=== PATIENT | female | born 1970 | race Caucasian/White ===

== ENCOUNTER 2022-10-20 13:16 | Inpatient (IN) | payer BC ==
[~2022-10-20] VITALS: Ht 165.1 cm; Wt 154.5 kg
[2022-10-20 13:25] VITALS: BP 181/95
[2022-10-20 14:04] LABS: BASO % 1.3 % (0.0-1.0); EOS # 0.1 10*3/uL (0.0-0.4); EOS % 2.3 % (1.0-4.0); HEMATOCRIT 41.2 % (37.0-47.0); LYMPH # 1.5 10*3/uL (1.3-4.4); LYMPH % 46.9 % (27.0-41.0); MEAN CELL VOLUME 98.1 fl (81.0-99.0); MEAN CORPUSCULAR HGB 33.1 pg (27.0-31.0); MEAN CORPUSCULAR HGB CONC 33.7 g/dl (33.0-37.0); MEAN PLATELET VOLUME 10.4 fl (9.6-12.3); MONO # 0.5 10*3/uL (0.1-1.0); MONO % 15.2 % (3.0-9.0); NEUT # 1.1 10*3/uL (2.3-7.9); PLATELET COUNT AUTOMATED 284 10*3/uL (130-400); RED CELL DISTRI WIDTH 14.5 % (0-14.5); WHITE BLOOD COUNT 3.1 10*3/uL (4.8-10.8)
[2022-10-20 14:27] LABS: ALKALINE PHOSPHATASE 90 U/L (46-116); CHLORIDE 101 mmol/L (98-107); ETHYL ALCOHOL 191.2 mg/dl (<3); POTASSIUM 3.5 mmol/L (3.4-5.1); SGPT/ALT 213 U/L (10-49); TOTAL PROTEIN 7.5 gm/dL (6.0-8.0)
[2022-10-20 14:28] LABS: BUN < 5 mg/dl (9-23)
[2022-10-20 15:22] LABS: BILIRUBIN Negative (Negative); BLOOD Negative (Negative); CLARITY Clear (Clear); COLOR Yellow (Yellow); GLUCOSE Negative (Negative); KETONE Negative (Negative); LEUKO ESTERASE Negative (Negative); NITRITE Negative (Negative); PH 6.5 (4.5-8.0); SPECIFIC GRAVITY <= 1.005 (1.001-1.030); UROBILINOGEN 0.2 E.U./dl (0.0-1.0)
[2022-10-20 15:31] LABS: URINE AMPHETAMINES Negative (1000ng/ml); URINE BARBITURATES Negative (200ng/ml); URINE BENZODIAZEPINES Negative (200ng/ml); URINE CANNABINOIDS (THC) Negative (50ng/ml); URINE COCAINE Negative (300ng/ml); URINE METHADONE Negative (300ng/ml); URINE OPIATES Negative (300ng/ml); URINE PHENCYCLIDINE Negative (25ng/ml)
[2022-10-20 15:38] LABS: RBC 0-2 rbc/hpf (0-2)
[2022-10-20 15:39] LABS: BACTERIA 2+
[2022-10-20 20:25] VITALS: BP 161/86
[2022-10-20] MEDS ORDERED: OMEPRAZOLE20 M3 PO (20:39)
[2022-10-21] VITALS: BP 149/79
[2022-10-21 04:00] VITALS: BP 158/73
[2022-10-21 06:58] LABS: HEMATOCRIT 37.5 % (37.0-47.0); MEAN CELL VOLUME 98.9 fl (81.0-99.0); MEAN CORPUSCULAR HGB 33.2 pg (27.0-31.0); MEAN CORPUSCULAR HGB CONC 33.6 g/dl (33.0-37.0); MEAN PLATELET VOLUME 10.6 fl (9.6-12.3); PLATELET COUNT AUTOMATED 250 10*3/uL (130-400); RED BLOOD COUNT 3.79 10*6/uL (4.10-5.10); RED CELL DISTRI WIDTH 14.6 % (0-14.5); WHITE BLOOD COUNT 2.6 10*3/uL (4.8-10.8)
[2022-10-21 06:59] LABS: MANUAL DIFF REFLEX YES
[2022-10-21 07:06] LABS: INTERNATIONAL NORM RATIO 1.1 (2.0-3.5)
[2022-10-21 07:25] LABS: ALKALINE PHOSPHATASE 72 U/L (46-116); BUN < 5 mg/dl (9-23); CHLORIDE 104 mmol/L (98-107); CHOLESTEROL 216 mg/dL (<200); FREE T4 0.91 ng/dl (0.89-1.76); LDL CHOLESTEROL 99 mg/dL (9-159); POTASSIUM 3.7 mmol/L (3.4-5.1); SGPT/ALT 151 U/L (10-49); TOTAL PROTEIN 6.3 gm/dL (6.0-8.0); TRIGLYCERIDES 46 mg/dl (<150)
[2022-10-21 07:42] LABS: BASOPHILS 1 % (0-1); BURR CELLS FEW; OVALOCYTES FEW; PLATELET SUFFICIENCY NORMAL (NORMAL); POLYCHROMASIA SLIGHT; TOTAL CELLS COUNTED 100 #CELLS; TOXIC GRANULATION SLIGHT
[2022-10-21 07:43] LABS: ROULEAUX SLIGHT
[2022-10-21 08:00] VITALS: BP 158/99
[2022-10-21 08:12] LABS: VITAMIN D, 25-HYDROXY 21.1 ng/mL (30-100)
[2022-10-21 12:00] VITALS: BP 146/76
[2022-10-21 16:00] VITALS: BP 147/86
[2022-10-21 20:00] VITALS: BP 156/81
[2022-10-22] VITALS: BP 151/86
[2022-10-22 06:42] LABS: HEMATOCRIT 38.1 % (37.0-47.0); MEAN CELL VOLUME 99.7 fl (81.0-99.0); MEAN CORPUSCULAR HGB CONC 33.1 g/dl (33.0-37.0); MEAN PLATELET VOLUME 10.2 fl (9.6-12.3); PLATELET COUNT AUTOMATED 263 10*3/uL (130-400); RED BLOOD COUNT 3.82 10*6/uL (4.10-5.10); RED CELL DISTRI WIDTH 14.6 % (0-14.5); WHITE BLOOD COUNT 2.3 10*3/uL (4.8-10.8)
[2022-10-22 06:44] LABS: ALKALINE PHOSPHATASE 72 U/L (46-116); BUN < 5 mg/dl (9-23); CHLORIDE 105 mmol/L (98-107); POTASSIUM 3.5 mmol/L (3.4-5.1); SGPT/ALT 115 U/L (10-49); TOTAL PROTEIN 6.3 gm/dL (6.0-8.0)
[2022-10-22 06:48] LABS: MANUAL DIFF REFLEX YES
[2022-10-22 07:24] LABS: BASOPHILS 1 % (0-1); PLATELET SUFFICIENCY NORMAL (NORMAL); TOTAL CELLS COUNTED 100 #CELLS
[2022-10-22 08:00] VITALS: BP 159/93
[2022-10-22 12:00] VITALS: BP 143/69
[2022-10-22 16:00] VITALS: BP 154/90
[2022-10-22 20:03] VITALS: BP 140/68
[2022-10-22] MEDS ORDERED: HYDROXYZINE PAM50 MG PO (20:30)
[2022-10-22] MEDS ORDERED: METHOCARBAMOL750 M1 PO (20:30)
[2022-10-22 21:06] VITALS: BP 146/85
== END 2022-10-22 21:16 | disposition home or self-care (01) | DRG 897 ==
LOC: ED 13:16 → 5E 16:46 → EDHOLD 16:46 → 5E 20:45 → ICCU 10-22 18:17
PROVIDERS: Internal Medicine; Student in an Organized Health Care Education/Training Program; ADMIT Internal Medicine; ATTEND Internal Medicine
DX: F10.930 Alcohol use, unspecified with withdrawal, uncomplicated (principal); Z68.43 Body mass index [BMI] 50.0-59.9, adult; R82.71 Bacteriuria; E66.9 Obesity, unspecified; Z96.653 Presence of artificial knee joint, bilateral; R74.01 Elevation of levels of liver transaminase levels; I10 Essential (primary) hypertension; Z88.2 Allergy status to sulfonamides; Z82.5 Family history of asthma and other chronic lower respiratory diseases; Z80.1 Family history of malignant neoplasm of trachea, bronchus and lung; Z79.899 Other long term (current) drug therapy; Z90.49 Acquired absence of other specified parts of digestive tract